=== PATIENT | female | born 1945 | race Native Hawaiian/Other Pacific Islander ===

== ENCOUNTER 2018-08-20 22:43 | Emergency (ER) | payer MEDICARE ==
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
== END 2018-08-21 05:26 | disposition home or self-care (01) ==
LOC: ED 22:43
CPT/HCPCS: 99283